=== PATIENT | male | born 1960 | race Caucasian/White ===

== ENCOUNTER 2024-03-21 21:14 | Emergency (ER) | payer OTHER ==
[~2024-03-21] VITALS: Ht 167.6 cm; Wt 68.9 kg
[~2024-03-21 21:14] MED LIST: CIPROFLOXACIN500 MG PO; NKHM; PYRIDIUM200 MG PO
[2024-03-21] MEDS ORDERED: SODIUM CHLORIDE 0.9% 1,000 ML IV ONE (21:30)
[2024-03-21] MEDS ORDERED: Ondansetron Hydrochloride 4 MG/2 ML VIAL IV ONE (21:30)
[2024-03-21 21:45] LABS: BASO # 0.1 10*3/uL (0.0-0.1); BASO % 0.5 % (0.0-1.0); EOS # 0.3 10*3/uL (0.0-0.4); EOS % 2.1 % (1.0-4.0); HEMATOCRIT 44.4 % (42.0-52.0); MEAN CELL VOLUME 88.4 fl (80.0-94.0); MEAN CORPUSCULAR HGB 29.1 pg (27.0-31.0); MEAN CORPUSCULAR HGB CONC 32.9 g/dl (33.0-37.0); MEAN PLATELET VOLUME 8.9 fl (9.6-12.3); MONO % 7.8 % (3.0-9.0); NEUT # 8.6 10*3/uL (2.3-7.9); NEUT % 70.2 % (47.0-73.0); PLATELET COUNT AUTOMATED 335 10*3/uL (130-400); RED BLOOD COUNT 5.02 10*6/uL (4.50-5.90); RED CELL DISTRI WIDTH 12.5 % (0-14.5); WHITE BLOOD COUNT 12.3 10*3/uL (4.8-10.8)
[2024-03-21 22:03] LABS: BUN 14 mg/dl (9-23); CHLORIDE 103 mmol/L (98-107); POTASSIUM 3.5 mmol/L (3.4-5.1)
[2024-03-21] MEDS ORDERED: Metoclopramide Hydrochloride 10 MG/2 ML VIAL IV ONE (22:45)
[2024-03-21] MEDS ORDERED: diphenhydrAMINE hydrochloride 50 MG/ML VIAL IV ONE (22:45)
[2024-03-21 23:13] LABS: BILIRUBIN Negative (Negative); BLOOD Negative (Negative); CLARITY Clear (Clear); COLOR Yellow (Yellow); GLUCOSE 1+ (Negative); KETONE 1+ (Negative); LEUKO ESTERASE Trace (Negative); NITRITE Negative (Negative); PH 6.5 (4.5-8.0); UROBILINOGEN 0.2 E.U./dl (0.0-1.0)
[2024-03-21 23:27] LABS: WBC 21-30 wbc/hpf (0-5)
== END 2024-03-22 00:19 | disposition home or self-care (01) ==
LOC: ED 21:14
PROVIDERS: Internal Medicine
DX: R11.2 Nausea with vomiting, unspecified (principal); T36.1X5A Adverse effect of cephalosporins and other beta-lactam antibiotics, initial encounter; Z20.822 Contact with and (suspected) exposure to COVID-19; R19.7 Diarrhea, unspecified; Z88.1 Allergy status to other antibiotic agents; Y92.89 Other specified places as the place of occurrence of the external cause; Z79.899 Other long term (current) drug therapy

== ENCOUNTER 2024-07-13 16:56 | Emergency (ER) | payer OTHER ==
[~2024-07-13] VITALS: Ht 167.6 cm; Wt 65.8 kg
[2024-07-13] MEDS ORDERED: NITROGLYCERIN 0.4 MG BOT SL ONE (18:40)
[2024-07-13] MEDS ORDERED: Glucagon Hydrochloride 1 MG SYR IV ONE ×2 (18:40→19:50)
[2024-07-13] MEDS ORDERED: Ondansetron Hydrochloride 4 MG/2 ML VIAL IV ONE (19:50)
[2024-07-13] MEDS ORDERED: methylPREDNISolone sod succ 125 MG VIAL IV ONE (21:20)
== END 2024-07-13 21:35 | disposition home or self-care (01) ==
LOC: ED 16:56
DX: R63.8 Other symptoms and signs concerning food and fluid intake (principal); Z88.1 Allergy status to other antibiotic agents